=== PATIENT | female | born 1990 | race Caucasian/White ===

== ENCOUNTER 2019-09-14 17:33 | Emergency (ER) | payer BC ==
--- NOTE | 2019-09-14 18:14 | ER Document Report ---
ED Medical Screen (RME) - General Chief Complaint: Headache Stated Complaint: HEADACHE Time Seen by Provider: 09/14/19 18:08 Mode of Arrival: Ambulatory Information source: Patient Notes: 28-year-old female presents emergency department with headache that has now resolved. Also reports she had some numbness in her hands and face. She went to [facility] and they sent her over here for CT. Reports she has had headaches on and off for the past couple years. Reports father and sister have migraines she is never been diagnosed with migraines. She reports her symptoms have resolved now. She did not take Tylenol or Motrin for the pain but reports she does not like taking anything. Patient speaking in a clear voice no obvious neuro deficits. I have greeted and performed a rapid initial assessment of this patient. A comprehensive ED assessment and evaluation of the patient, analysis of test results and completion of the medical decision making process will be conducted by additional ED providers. Dictation of this chart was performed using voice recognition software; therefore, there may be some unintended grammatical errors. - Related Data Allergies/Adverse Reactions: Penicillins Allergy (Verified 09/24/13 21:35) Hives Past Medical History Past Surgical History: Reports: Hx Myringotomy - Immunizations Immunizations up to date: Yes Hx Diphtheria, Pertussis, Tetanus Vaccination: Yes Physical Exam - Vital signs Vitals: Temp Pulse Resp BP Pulse Ox 98.6 F 75 16 140/71 H 100 09/14/19 18:06 09/14/19 18:06 09/14/19 18:06 09/14/19 18:06 09/14/19 18:06 Course - Vital Signs Vital signs: Temp Pulse Resp BP Pulse Ox 98.6 F 75 16 140/71 H 100 09/14/19 18:06 09/14/19 18:06 09/14/19 18:06 09/14/19 18:06 09/14/19 18:06
[2019-09-14 19:15] LABS: ABSOLUTE LYMPHOCYTES (AUTO) 0.7 10^3/uL (0.5-4.7); ABSOLUTE MONOCYTES (AUTO) 0.1 10^3/uL (0.1-1.4); ABSOLUTE NEUT (AUTO) 8.3 10^3/uL (1.7-8.2); BASOPHILS % (AUTO) 0.1 % (0-2); HEMATOCRIT 42.4 % (36.0-47.0); HEMOGLOBIN 14.3 g/dL (12.0-15.5); LYMPHOCYTES % (AUTO) 7.5 % (13-45); MEAN CORPUSCULAR HEMOGLOBIN 29.1 pg (27.0-33.4); MEAN CORPUSCULAR HGB CONC 33.7 g/dL (32.0-36.0); MEAN CORPUSCULAR VOLUME 86 fl (80-97); MONOCYTES % (AUTO) 1.4 % (3-13); PLATELET COUNT 351 10^3/uL (150-450); RED BLOOD COUNT 4.92 10^6/uL (3.72-5.28); RED CELL DISTRIBUTION WIDTH 12.4 % (11.5-14.0); TOTAL CELLS COUNTED % (AUTO) 100 %; WHITE BLOOD COUNT 9.2 10^3/uL (4.0-10.5)
[2019-09-14 19:38] LABS: ALBUMIN 4.9 g/dL (3.5-5.0); ALKALINE PHOSPHATASE 68 U/L (38-126); ANION GAP 14 (5-19); ASPARTATE AMINO TRANSFERASE 30 U/L (14-36); BILIRUBIN,DIRECT 0.2 mg/dL (0.0-0.4); BILIRUBIN,TOTAL 0.3 mg/dL (0.2-1.3); BLOOD UREA NITROGEN 13 mg/dL (7-20); CARBON DIOXIDE 24 mmol/L (22-30); CHLORIDE 105 mmol/L (98-107); GLUCOSE 91 mg/dL (75-110); POTASSIUM 4.2 mmol/L (3.6-5.0); TOTAL PROTEIN 8.1 g/dL (6.3-8.2)
[2019-09-14 19:54] LABS: APPEARANCE,URINE SLIGHTLY-CLOUDY; BILIRUBIN,URINE NEGATIVE (NEGATIVE); COLOR,URINE YELLOW; GLUCOSE, URINE NEGATIVE (NEGATIVE); KETONES,URINE 80 mg/dL (NEGATIVE); LEUKOCYTE ESTERASE,URINE SMALL (NEGATIVE); NITRITE,URINE NEGATIVE (NEGATIVE); PROTEIN,URINE NEGATIVE (NEGATIVE); URINE SPECIFIC GRAVITY 1.027; UROBILINOGEN,URINE NEGATIVE mg/dL (<2.0)
--- NOTE | 2019-09-14 21:12 | ER Document Report ---
HPI - HPI Time Seen by Provider: 09/14/19 18:08 Pain Level: 1 Notes: 28-year-old female presents emergency department with headache that has now resolved. Also reports she had some numbness in her hands and face. She went to [facility] and they sent her over here for CT. Reports she has had headaches on and off for the past couple years. Reports father and sister have migraines she is never been diagnosed with migraines. She reports her symptoms have resolved now. She did not take Tylenol or Motrin for the pain but reports she does not like taking anything. Patient speaking in a clear voice no obvious neuro deficits. - CONSTITUTIONAL Constitutional: DENIES: Fever, Chills - NEURO Neurology: REPORTS: Headache, Weakness, Vision blurred, Dizzinesss / Vertigo - REPRODUCTIVE Reproductive: DENIES: : Past Medical History - General Information source: Patient - Social History Smoking Status: Never Smoker Chew tobacco use (# tins/day): No Frequency of alcohol use: None Drug Abuse: None Family History: Arthritis, CAD, CVA, Hyperlipidemia, Hypertension, Malignancy, Thyroid Disfunction Patient has suicidal ideation: No Patient has homicidal ideation: No - Medical History Medical History: Negative Past Surgical History: Reports: Hx Myringotomy - Immunizations Immunizations up to date: Yes Hx Diphtheria, Pertussis, Tetanus Vaccination: Yes Vertical Provider Document - CONSTITUTIONAL Notes: PHYSICAL EXAMINATION: GENERAL: Well-appearing, well-nourished and in no acute distress. HEAD: Atraumatic, normocephalic. EYES: Pupils equal round and reactive to light, extraocular movements intact, conjunctiva are normal. ENT: Nares patent, oropharynx clear without exudates. Moist mucous membranes. NECK: Normal range of motion, supple without lymphadenopathy LUNGS: Breath sounds clear to auscultation bilaterally and equal. No wheezes rales or rhonchi. HEART: Regular rate and rhythm without murmurs ABDOMEN: Soft, nontender, nondistended abdomen. No guarding, no rebound. No masses appreciated. Female : deferred Musculoskeletal: Normal range of motion, no pitting or edema. No cyanosis. NEUROLOGICAL: Face symmetric. Tongue protrudes midline. Extraocular motions intact. Pupils are 2 mm and equally reactive. Normal speech, normal gait. 5 out of 5 strength in both the distal and proximal upper and lower extremities bilaterally. Sensation is grossly intact throughout. Finger to nose testing normal. Pronator drift normal. PSYCH: Normal mood, normal affect. SKIN: Warm, Dry, normal turgor, no rashes or lesions noted. - INFECTION CONTROL TRAVEL OUTSIDE OF THE [place] IN LAST 30 DAYS: No Course - Re-evaluation Re-evalutation: Laboratory 09/14/19 09/14/19 09/14/19 18:47 18:47 19:30 WBC 9.2 RBC 4.92 Hgb 14.3 Hct 42.4 MCV 86 MCH 29.1 MCHC 33.7 RDW 12.4 Plt Count 351 Lymph % (Auto) 7.5 L [place] % (Auto) 1.4 L Eos % (Auto) 0.0 Baso % (Auto) 0.1 Absolute Neuts (auto) 8.3 H Absolute Lymphs (auto) 0.7 Absolute Monos (auto) 0.1 Absolute Eos (auto) 0.0 Absolute Basos (auto) 0.0 Seg Neutrophils % 91.0 H Sodium 142.7 Potassium 4.2 Chloride 105 Carbon Dioxide 24 Anion Gap 14 BUN 13 Creatinine 0.72 Est GFR ( Amer) > 60 Est GFR (MDRD) Non-Af > 60 Glucose 91 Calcium 10.0 Total Bilirubin 0.3 Direct Bilirubin 0.2 Neonat Total Bilirubin Not Reportable Neonat Direct Bilirubin Not Reportable Neonat Indirect Bili Not Reportable AST 30 ALT 30 Alkaline Phosphatase 68 Total Protein 8.1 Albumin 4.9 Urine Color YELLOW Urine Appearance SLIGHTLY-CLOUDY Urine pH 5.0 Ur Specific Central 1.027 Urine Protein NEGATIVE Urine Glucose (UA) NEGATIVE Urine Ketones 80 H Urine Blood MODERATE H Urine Nitrite NEGATIVE Urine Bilirubin NEGATIVE Urine Urobilinogen NEGATIVE Ur Leukocyte Esterase SMALL H Urine WBC (Auto) 5 Urine RBC (Auto) 3 Squamous Epi Cells Auto 5 Urine Mucus (Auto) MOD Urine Ascorbic Acid 40 H At the time of my evaluation, patient has already been seen by provider in triage. Labs as recorded above. Patient is asymptomatic, laughing and smiling, denying any symptoms of headache. Discussed risks and benefits of head CT. Head CT not indicated at this time, patient agrees. Patient will be discharged home in stable condition with plans to follow-up with her primary care provider, ED return precautions were discussed. - Vital Signs Vital signs: Temp Pulse Resp BP Pulse Ox 98.6 F 75 16 140/71 H 100 09/14/19 18:06 09/14/19 18:06 09/14/19 18:06 09/14/19 18:06 09/14/19 18:06 - Laboratory Result Diagrams: 09/14/19 18:47 09/14/19 18:47 Laboratory results interpreted by me: 09/14/19 09/14/19 18:47 19:30 Lymph % (Auto) 7.5 L [place] % (Auto) 1.4 L Absolute Neuts (auto) 8.3 H Seg Neutrophils % 91.0 H Urine Ketones 80 H Urine Blood MODERATE H Ur Leukocyte Esterase SMALL H Urine Ascorbic Acid 40 H Discharge - Discharge Clinical Impression: Ophthalmic migraine Condition: Stable Disposition: HOME, SELF-CARE Additional Instructions: You have been seen in the Emergency Department (ED) for a headache. Please use Tylenol (acetaminophen) or Motrin (ibuprofen) as needed for symptoms, but only as written on the box. For severe headache please take the Fioricet as prescribed. As we have discussed, please follow up with your primary care doctor as soon as possible regarding today's ED visit and your headache symptoms. I have given you a phone number of a neurologist here in town, you may contact him for further follow-up. Call your doctor or return to the ED if you have a worsening headache, sudden and severe headache, confusion, slurred speech, facial droop, weakness or numbness in any arm or leg, extreme fatigue, or other symptoms that concern you. Prescriptions: Butalb/Acetaminophen/Caffeine [Fioricet 50-300-40 mg Capsule] 1 - 2 cap PO Q4 PRN #30 cap PRN Reason: Referrals: JOSIAS CUMMINGS MD [NO LOCAL MD] - Follow up as needed
[2019-09-14 21:24] VITALS: BP 133/83
== END 2019-09-14 21:24 | disposition home or self-care (01) ==
LOC: ER 17:33
DX: G43.809 Other migraine, not intractable, without status migrainosus (principal); R20.0 Anesthesia of skin; R53.1 Weakness; R42 Dizziness and giddiness; Z82.0 Family history of epilepsy and other diseases of the nervous system; Z82.3 Family history of stroke
CPT/HCPCS: 36415; 80053; 81001; 85025; 99284